=== PATIENT | female | born 1990 | race Caucasian/White ===

== ENCOUNTER 2022-03-15 16:09 | Emergency (ER) | payer OTHER ==
[2022-03-15] MEDS ORDERED: Ibuprofen 800 MG TAB ONE (16:16)
== END 2022-03-15 16:24 | disposition home or self-care (01) ==
LOC: BURERS 16:09
DX: M94.0 Chondrocostal junction syndrome [Tietze] (principal)

== ENCOUNTER 2023-01-02 11:47 | Emergency (ER) | payer OTHER | END 2023-01-02 12:31 | disposition home or self-care (01) | LOC: BURERS 11:47 | DX: S63.501A Unspecified sprain of right wrist, initial encounter (principal); W19.XXXA Unspecified fall, initial encounter ==